=== PATIENT | male | born 1945 | race Caucasian/White ===

== ENCOUNTER 2016-06-16 11:44 | Inpatient (IN) | payer MEDICARE ==
[2016-06-12 09:52] LABS: BASOPHILS 0.7 %; BASOPHILS ABSOLUTE 0.05 10/3/uL (0.0-0.16); EOSINOPHILS 3.8 %; EOSINOPHILS ABSOLUTE 0.26 10/3/uL (0.0-0.53); HEMATOCRIT 39.1 % (40.0-51.0); IMMATURE GRANULOCYTES 0.4 %; IMMATURE GRANULOCYTES ABSOLUTE 0.03 10/3/uL (0.0-0.11); LYMPHOCYTES 22.9 %; LYMPHOCYTES ABSOLUTE 1.56 10/3/uL (0.67-4.30); MEAN CORPUS HGB CONC 33.2 g/dL (32.0-36.0); MEAN CORPUSCULAR HEMOGLOB 28.8 pg (26.0-34.0); MEAN CORPUSCULAR VOLUME 86.7 fL (80-100); MEAN PLATELET VOLUME 9.5 fL (9.2-13.0); MONOCYTES 8.4 %; MONOCYTES ABSOLUTE 0.57 10/3/uL (0.21-1.20); NEUTROPHILS 63.8 %; NEUTROPHILS ABSOLUTE 4.35 10/3/uL (2.02-8.40); PLATELET COUNT 261 10/3/uL (150-400); RBC DISTRIBUTION WIDTH 14.2 % (12.0-16.0); RED CELL COUNT 4.51 10/6/uL (4.7-6.1); WHITE BLOOD CELLS 6.8 10/3/uL (4.5-10.5)
[2016-06-12 09:55] LABS: MANUAL DIFF NO %
[2016-06-12 09:58] LABS: INTERNATIONAL NORMAL RATI 1.1 UNITS (-)
[2016-06-12 10:07] LABS: BUN (BLOOD UREA NITROGEN) 28 MG/DL (6-23); CALCIUM, SERUM 9.7 MG/DL (8.5-10.4); CHLORIDE, SERUM 107 MMOL/L (96-112); CO2 (CARBON DIOXIDE) 26 MMOL/L (24-34); CREATININE 1.16 MG/DL (0.70-1.30); GFR AFRICAN AMERICAN 73 ML/MIN (>=60); GFR NON AFRICAN AMERICAN 63 ML/MIN (>=60); GLUCOSE, SERUM 159 MG/DL (60-99); POTASSIUM, SERUM 4.1 MMOL/L (3.5-5.3); SODIUM, SERUM 140 MMOL/L (135-148)
[2016-06-12 10:35] LABS: ASCORBIC ACID (UR NOT ORDER) NEG (NEG); BILIRUBIN, URINE NEGATIVE (NEG); KETONE, URINE NEGATIVE (NEG); LEUKOCYTE ESTERASE(NOT OR NEG (NEG); WBC (NOT ORDERED) (RFLEX) 1 (0-5)
--- NOTE | ~2016-06-16 | OP ---
Record Of Operation [facility] [address] [place]. [address] NAME: DELILAH CURRY : 43 STATUS : ADM IN PAT#: [id number] AGE: 70 ADM/REG DATE : 06/16/16 MR#: [id number] REPORT SERV DATE: 06/16/16 DICTATED BY: MARCELL SILVA DATE: 06/16/16 REPORT STATUS : Draft TRANSCRIBED BY: MODPauline DATE: 06/16/16 DATE OF PROCEDURE: 06/16/2016 PREOPERATIVE DIAGNOSIS: Critical right internal carotid artery stenosis. POSTOPERATIVE DIAGNOSIS: Critical right internal carotid artery stenosis. PROCEDURE PERFORMED: Right eversion carotid endarterectomy with intraoperative ultrasound guidance and permissive hypertension. SURGEON: Marcell Silva M.D. ANESTHESIA: Local MAC. COMPLICATIONS: None. INDICATION FOR PROCEDURE: Secondary to this very pleasant 70-year-old gentleman presenting with evidence of critical right internal carotid artery obstruction recommendations were made for endarterectomy. Risks and benefits discussed. Consent was obtained. DETAILS OF PROCEDURE: The patient was brought to the endovascular operating room, placed in supine position, prepped and draped in routine sterile fashion to the right neck. Ultrasound was then utilized to locate the common carotid artery and its bifurcation in the right neck and this was then marked on the patient's skin. Pictures of these structures were taken and placed on the chart. Next, incision was then made after appropriate local MAC anesthesia over the lynette leading to the common carotid artery. Dissection proceeded down to the common carotid artery. This was loop controlled. 5000 units of heparin was given and allowed to circulate. The internal carotid artery was then dissected free, followed by the external, and the external was loop controlled. The superior thyroidal artery was ligated and divided and the internal and external bulb were then skeletonized. Once this was completed, permissive hypertension was then instituted with systolic blood pressure over 200. The distal ICA was then clamped. The patient maintained normal neurologic integrity with ability to countermove his contralateral hand. The common carotid artery was then clamped followed by loop control of the external and the internal was then amputated from the bulb to create a wide patch. Eversion technique was then utilized to remove the plaque and debris from the internal carotid artery bulb external and common to my satisfaction. Once this was completed, the anastomosis was then performed with 6-0 Prolene on a C1 needle running continuous stitch. Flushing maneuvers were performed per routine. Next, Surgicel and FloSeal were utilized to promote local hemostasis. With this completed and satisfactory, the platysma was then closed with Vicryl and Monocryl for the skin. Steri Strips dressings were applied. The patient tolerated the procedure well. Neurologically intact at the end of the procedure. Record Of Operation [address] [place] [place]. [address] NAME: DELILAH CURRY : 43 STATUS : ADM IN [facility]#: [id number] AGE: 70 ADM/REG DATE : 06/16/16 MR#: [id number] REPORT SERV DATE: 06/16/16 DICTATED BY: MARCELL SILVA DATE: 06/16/16 REPORT STATUS : Draft TRANSCRIBED BY: SHAHEEN DATE: 06/16/16 CL/SHAHEEN Marcell Silva M.D. / [id number] CC: Marcell Silva M.D.
[~2016-06-16 11:44] MED LIST: APIDRA SC; ASAB PO; COREG12 PO; DIOV160 PO; FLOMAX4 PO; GLUCOPHAGE1000 MG PO; HYDROCHLOROT25 MG PO; KLOR-CON M2020 MEQ PO; LANTUS SC; LOPID6 PO; MIRAPEX ER1.5 MG PO; NOVLOGPUMP; NOVLOGPUMP SC; PRAVACHOL40 MG PO; PROSCAR5 PO; PROZAC; PROZAC40 MG PO; [UNRECOGNIZED DRUG - OTHER]; [UNRECOGNIZED DRUG - REMARK]
[2016-06-16 17:14] LABS: HEMATOCRIT 34.9 % (40.0-51.0); HEMOGLOBIN 11.7 g/dL (13.6-17.8)
[2016-06-17] MEDS ORDERED: PCET PO (11:35)
[2016-06-18] MEDS ORDERED: VITAMIN D31000 UNIT PO (20:01)
[2016-06-18] MEDS ORDERED: ACET500CAP PO (20:02)
== END 2016-06-17 13:00 | disposition home or self-care (01) | DRG 39 ==
LOC: SDC/OF 11:44 → CVICU 18:44
PROVIDERS: Specialist
PROC: 03CK0ZZ Extirpation of Matter from Right Internal Carotid Artery, Open Approach (ICD-10-PCS; principal; 2016-06-16 15:45)
DX: I65.21 Occlusion and stenosis of right carotid artery (principal); E11.9 Type 2 diabetes mellitus without complications; I10 Essential (primary) hypertension; I73.9 Peripheral vascular disease, unspecified; Z79.899 Other long term (current) drug therapy; Z79.84 Long term (current) use of oral hypoglycemic drugs; Z01.810 Encounter for preprocedural cardiovascular examination
CPT/HCPCS: 71020; 78452; 80048; 81001; 82962; 85014; 85018; 85025; 85610; 87641; 88304; 88311; 93005; 93017; A9270-GY; A9502; J0360; J0690; J2370; J2785; J3010

== ENCOUNTER 2016-06-18 19:32 | Inpatient (IN) | payer MEDICARE ==
--- NOTE | ~2016-06-18 | DS ---
Discharge Summary [facility] [address] [place]. [address] NAME: DELILAH CURRY : 43 STATUS : DIS IN PAT#: [id number] AGE: 70 ADM/REG DATE : 06/18/16 MR#: [id number] REPORT SERV DATE: 07/03/16 DICTATED BY: MARCELL SILVA DATE: 07/02/16 REPORT STATUS : Draft TRANSCRIBED BY: SHAHEEN DATE: 07/02/16 Data Collection from hospitalization DISCHARGE DIAGNOSES: 1. Dysphagia secondary to right carotid endarterectomy. 2. Type 2 diabetes mellitus. 3. Essential hypertension. 4. History of heart failure. 5. Hyperlipidemia. 6. Depression. 7. Enlarged prostate. CONSULTATION: Dr. Yandel Ramos. PROCEDURES PERFORMED: 1. CTA of the neck, 06/18/2016. 2. Modified barium swallow study, 06/20/2016. MEDICATIONS: Tylenol 1500 mg twice a day as needed, aspirin 81 mg with supper, Coreg 12.5 mg twice a day, vitamin D3 1000 units with supper, Proscar 5 mg with supper, Prozac 40 mg every morning, Lopid 600 mg before breakfast and supper, hydrochlorothiazide 25 mg every morning, NovoLog as instructed, Glucophage 1000 mg with breakfast and supper, Percocet 5/325 one to two tablets every six hours as needed, Klor-Con 20 mEq twice a day, Mirapex ER 1.5 mg at bedtime, Pravachol 40 mg at bedtime, Flomax 0.4 mg with supper, Diovan 160 mg every morning. CONDITION AT DISCHARGE: Stable. DISPOSITION: The patient was discharged home on a regular diet with activities as instructed. He would follow up with me in two to four weeks following discharge. HOSPITAL COURSE: This is a 70-year-old man, who had undergone a right carotid endarterectomy. The patient began having symptoms of dysphagia on the day of admission. He presented to the emergency room. He was spitting up white frothy sputum, which then progressed to bloody. He was admitted to the hospital at this time for further evaluation and treatment. Upon admission, a swallow study was requested. His lungs were clear. His abdomen was soft. He underwent diabetes education. The following day, Speech/Language Pathology performed a bedside swallow study. There were overt signs and symptoms of aspiration with thin liquids. Aspiration precautions were in place. On 06/20/2016, the patient said his pain had improved, but he was still unable to swallow. His neck was edematous. His incision site was clean, dry, and intact. Nystatin was going to began. A modified barium swallow study was performed. He had also undergone a CTA of the neck. The patient did exhibit silent aspiration of thin and pudding thick liquids and deep penetration of nectar and honey-thick liquids. Aspiration precautions remained in place. He was seen by Dr. Yandel Ramos regarding his diabetes and medical management. CTA had shown postop edema and tissue of the neck consistent with recent surgery. There was mass effect upon the trachea and esophagus. Carotid appeared intact. No significant luminal stenosis was seen. No intraluminal defect Discharge Summary [address] [address] NAME: DELILAH CURRY : 43 STATUS : DIS IN PAT#: [id number] AGE: 70 ADM/REG DATE : 06/18/16 MR#: [id number] REPORT SERV DATE: 07/03/16 DICTATED BY: MARCELL SILVA DATE: 07/02/16 REPORT STATUS : Draft TRANSCRIBED BY: SHAHEEN DATE: 07/02/16 was seen. There was an incidental thyroid mass identified. The patient had been started on steroids and speech evaluation had been performed, which he had failed. He was slowly getting his voice back. White blood cell count was 13.2 and it was felt that his dysphagia was secondary to extrinsic compression from recent surgery. The patient takes care of his sugars with his insulin pump. Hemoglobin A1c was going to be checked. It was suspected that his blood sugar would be uncontrolled because he was being given steroids. Since he had failed two swallowing tests, we would hold all oral medications for now. IV hydralazine would be given for blood pressure control. Intravenous fluids were increased. It was felt that the patient would need to have the thyroid mass evaluated at a later date. Thyroid function test was going to be performed. The following day, his neck was still edematous. His speaking had slightly improved. IV fluids were continued. Blood pressure was controlled. He remained on his insulin pump. Hydralazine continued as needed. Discharge planning was performed. On 06/22/2016, discharge instructions were given. Due to his improved and stable condition, he was discharged home with the above-stated instructions. Information collected by: Lisy Lang I submit the above information as my discharge summary. JANEE/SHAHEEN Marcell Silva M.D. / [id number] CC: Marcell Silva M.D.
--- NOTE | ~2016-06-18 | CN ---
Consultation Report [facility] [address] [place]. [address] NAME: DELILAH CURRY : 43 STATUS : ADM IN [facility]#: [id number] AGE: 70 ADM/REG DATE : 06/18/16 MR#: [id number] REPORT SERV DATE: 06/20/16 DICTATED BY: ABELARDO STOVER DATE: 06/20/16 REPORT STATUS : Draft TRANSCRIBED BY: MODPauline DATE: 06/20/16 CONSULTATION NOTE DATE OF CONSULTATION: Consult coming from Dr. Silva for medical management, especially diabetes. HISTORY OF PRESENT ILLNESS: This is a 70-year-old male who comes in for dysphagia and neck pain. The patient is from [place] and has a history of hypertension and diabetes. He was diagnosed with diabetes in 1987, has been on insulin, and for about eight to nine years now, he is on insulin pump. He said that his hemoglobin A1c the latest one is around 8 and sugar is around 150. The patient has a right carotid artery stenosis that was being followed in [place], but decided to relocate to [place]. The patient followed up with Dr. Vela and then Dr. Silva, and finally, the patient underwent a right carotid endarterectomy last Thursday. The patient was watched overnight, was sent home, and the next day which is two days prior to admission, the patient started having some swelling in his neck, some pain, could not eat, could not speak, and has been having some secretions going out of his mouth. The patient was then sent back to the emergency room where he was admitted to the service of Dr. Silva and a CAT scan was done, which showed postop edema, swelling, and some mixed gas bubbles through the right side arising from cervical spine into the soft tissue of the neck consistent with recent surgery, mass effect upon the trachea and esophagus identified which shift to the left carotid surgery was performed on the right. Carotid appears intact. No significant luminal stenosis is seen. No intraluminal defects seen. Incidental thyroid mass identified. The patient was then started on steroids and a speech evaluation was done, which he failed. The patient is slowly getting his voice back and the modified barium swallow was done this morning and he failed that as well. We are now consulted to help out with the other medical management. The patient denied any fever or chills. He had nausea and vomiting x2, but with a little bit of blood and none since admission. He denies any urinary or bowel changes. No shortness of breath at present. No chest pain, palpitation, abdominal pain, near syncopal or syncopal episode, and the rest of the 14-point review of system is negative except as above. PAST MEDICAL HISTORY: Includes the above. He had an appendectomy, two back surgeries at L4- L5 in February of 2013 and February of 2015, and cauterized a bleeding stomach ulcer in 1996. ALLERGIES: HE HAS NO KNOWN DRUG ALLERGIES. MEDICATIONS: Include Tylenol, aspirin, Coreg, vitamin D3, Proscar, Prozac, Lopid, hydrochlorothiazide, insulin pump, metformin, Percocet, potassium, Mirapex, Pravachol, Flomax, and Diovan. FAMILY HISTORY: Both parents have diabetes and hypertension. Dad has CAD and also of pancreatic cancer when he was 63. He does not smoke, drink, or use recreational drugs. PHYSICAL EXAMINATION: Consultation Report [address] [address] NAME: DELILAH CURRY : 43 STATUS : ADM IN [facility]#: [id number] AGE: 70 ADM/REG DATE : 06/18/16 MR#: [id number] REPORT SERV DATE: 06/20/16 DICTATED BY: ABELARDO STOVER DATE: 06/20/16 REPORT STATUS : Draft TRANSCRIBED BY: SHAHEEN DATE: 06/20/16 GENERAL: The patient is alert and oriented x3, not in cardiopulmonary distress. VITAL SIGNS: His vital signs include an oxygen saturation of 96% on room air, blood pressure of 167/74, temperature of 98.1, pulse rate of 67, and respirations of 18. NECK: He has supple neck. No JVD or carotid bruits. No lymphadenopathy. He has swollen right neck, some bruises, but no open wound. LUNGS: Clear lungs. No rales. No wheezes. CARDIOVASCULAR: Regular rate and rhythm. No murmurs. ABDOMEN: Positive bowel sounds. Soft and nontender. No masses. Fair pulses. No edema. NEURO: Nonlocalizing. LABORATORY DATA: Reveals a potassium of 3.4, glucose of 286, white count of 13.2, H and H of 12.4 and 35.9, and the rest is within normal limits. ASSESSMENT: 1. Dysphagia secondary to extrinsic compression from recent surgery. 2. Diabetes with hyperglycemia. 3. Hypertension. 4. Hypokalemia. 5. Thyroid mass. PLAN: The patient is adept at taking care of the sugars with his insulin pump. We will check the hemoglobin A1c, but I suspect his blood sugar will be uncontrolled because he is being given steroids. Since he failed his swallow test x2, we will hold all p.o. medications for now and agree with IV hydralazine for blood pressure control. We will increase the intravenous fluids, but I will defer the operative problems to you. The patient will need to have his thyroid mass evaluated later on. For the meantime, we will check the thyroid function test. Thank you for the consult. I will follow the patient with you. TRINA/SHAHEEN Abelardo Stover M.D. / [id number] CC: Facundo Lim
[2016-06-18 19:28] LABS: BASOPHILS 0.1 %; BASOPHILS ABSOLUTE 0.01 10/3/uL (0.0-0.16); EOSINOPHILS 0.4 %; EOSINOPHILS ABSOLUTE 0.05 10/3/uL (0.0-0.53); HEMATOCRIT 35.9 % (40.0-51.0); HEMOGLOBIN 12.4 g/dL (13.6-17.8); IMMATURE GRANULOCYTES 0.3 %; IMMATURE GRANULOCYTES ABSOLUTE 0.04 10/3/uL (0.0-0.11); LYMPHOCYTES 6.4 %; LYMPHOCYTES ABSOLUTE 0.84 10/3/uL (0.67-4.30); MANUAL DIFF NO %; MEAN CORPUS HGB CONC 34.5 g/dL (32.0-36.0); MEAN CORPUSCULAR VOLUME 83.9 fL (80-100); MEAN PLATELET VOLUME 8.9 fL (9.2-13.0); MONOCYTES 7.4 %; MONOCYTES ABSOLUTE 0.97 10/3/uL (0.21-1.20); NEUTROPHILS 85.4 %; NEUTROPHILS ABSOLUTE 11.24 10/3/uL (2.02-8.40); PLATELET COUNT 210 10/3/uL (150-400); RBC DISTRIBUTION WIDTH 14.1 % (12.0-16.0); RED CELL COUNT 4.28 10/6/uL (4.7-6.1); WHITE BLOOD CELLS 13.2 10/3/uL (4.5-10.5)
[~2016-06-18 19:32] MED LIST changes: +PCET PO
[2016-06-18 19:46] LABS: A/G RATIO 0.8 (0.7-1.9); ALBUMIN 3.3 G/DL (3.5-5.0); ALKALINE PHOSPHATASE 73 U/L (45-117); CALCIUM, SERUM 9.3 MG/DL (8.5-10.4); CHLORIDE, SERUM 102 MMOL/L (96-112); CO2 (CARBON DIOXIDE) 27 MMOL/L (24-34); CREATININE 1.15 MG/DL (0.70-1.30); GFR AFRICAN AMERICAN 74 ML/MIN (>=60); GFR NON AFRICAN AMERICAN 64 ML/MIN (>=60); GLOBULIN 4.2 G/DL (2.5-4.1); POTASSIUM, SERUM 3.4 MMOL/L (3.5-5.3); SGOT(AST) 6 U/L (5-40); SGPT(ALT) 14 U/L (5-65); SODIUM, SERUM 138 MMOL/L (135-148); TOTAL BILIRUBIN 0.6 MG/DL (0-1.2); TOTAL PROTEIN 7.5 G/DL (6.0-8.5)
[2016-06-18 19:47] LABS: BUN (BLOOD UREA NITROGEN) 18 MG/DL (6-23); GLUCOSE, SERUM 278 MG/DL (60-99)
[2016-06-18] MEDS ORDERED: VITAMIN D31000 UNIT PO (20:01)
[2016-06-18] MEDS ORDERED: ACET500CAP PO (20:02)
[2016-06-20 06:02] LABS: CALCIUM, SERUM 9.7 MG/DL (8.5-10.4); CHLORIDE, SERUM 104 MMOL/L (96-112); CO2 (CARBON DIOXIDE) 26 MMOL/L (24-34); CREATININE 1.17 MG/DL (0.70-1.30); GFR AFRICAN AMERICAN 72 ML/MIN (>=60); GFR NON AFRICAN AMERICAN 62 ML/MIN (>=60); GLUCOSE, SERUM 286 MG/DL (60-99); POTASSIUM, SERUM 3.4 MMOL/L (3.5-5.3); SODIUM, SERUM 140 MMOL/L (135-148)
[2016-06-20 06:09] LABS: BUN (BLOOD UREA NITROGEN) 31 MG/DL (6-23)
[2016-06-21 02:33] LABS: BUN (BLOOD UREA NITROGEN) 21 MG/DL (6-23); CALCIUM, SERUM 9.1 MG/DL (8.5-10.4); CHLORIDE, SERUM 109 MMOL/L (96-112); CO2 (CARBON DIOXIDE) 26 MMOL/L (24-34); CREATININE 0.76 MG/DL (0.70-1.30); FREE T4 1.74 NG/DL (0.76-1.46); GFR AFRICAN AMERICAN 106 ML/MIN (>=60); GFR NON AFRICAN AMERICAN 92 ML/MIN (>=60); GLUCOSE, SERUM 113 MG/DL (60-99); POTASSIUM, SERUM 3.4 MMOL/L (3.5-5.3); SODIUM, SERUM 145 MMOL/L (135-148)
[2016-06-22 07:34] LABS: BUN (BLOOD UREA NITROGEN) 12 MG/DL (6-23); CALCIUM, SERUM 8.4 MG/DL (8.5-10.4); CHLORIDE, SERUM 108 MMOL/L (96-112); CO2 (CARBON DIOXIDE) 27 MMOL/L (24-34); CREATININE 0.75 MG/DL (0.70-1.30); GFR AFRICAN AMERICAN 107 ML/MIN (>=60); GFR NON AFRICAN AMERICAN 92 ML/MIN (>=60); GLUCOSE, SERUM 179 MG/DL (60-99); POTASSIUM, SERUM 3.4 MMOL/L (3.5-5.3); SODIUM, SERUM 141 MMOL/L (135-148)
== END 2016-06-22 12:19 | disposition home or self-care (01) | DRG 921 ==
LOC: ER 19:32 → 2SO 22:58
PROVIDERS: Hospitalist; Internal Medicine
DX: L76.32 Postprocedural hematoma of skin and subcutaneous tissue following other procedure (principal); E11.8 Type 2 diabetes mellitus with unspecified complications; D64.9 Anemia, unspecified; R13.10 Dysphagia, unspecified; I10 Essential (primary) hypertension; Z96.41 Presence of insulin pump (external) (internal); R22.1 Localized swelling, mass and lump, neck; E87.6 Hypokalemia; Z79.4 Long term (current) use of insulin; Z98.890 Other specified postprocedural states; Z82.49 Family history of ischemic heart disease and other diseases of the circulatory system; Z83.3 Family history of diabetes mellitus; Z80.0 Family history of malignant neoplasm of digestive organs
CPT/HCPCS: 70498; 71010; 74230; 80048; 80053; 82962; 83036; 84132; 84439; 84443; 85025; 92526-GN; 92610-GN; 92611-GN; 96374; 96375; 99285; A9270-GY; G8996-CN-GN; G8997-CN-GN; G8998-CN-GN; J0360; J1720; J2405; Q9967